=== PATIENT | male | born 1970 | race Caucasian/White ===

== ENCOUNTER 2017-03-15 12:41 | Emergency (ER) | payer OTHER, MEDICARE ==
[2017-03-15] MEDS ORDERED: ALBUTEROL SULFATE 0.083% NEB 2.5 MG/3 ML AMPUL NEB ONE (13:27)
[2017-03-15] MEDS ORDERED: PREDNISONE 20 MG TABLET PO ONE (13:27)
--- NOTE | 2017-03-15 13:30 | ER Document Report ---
ED General - General Chief Complaint: Diarrhea Stated Complaint: EAR PAIN,DIFFICULTY BREATHING Time Seen by Provider: 03/15/17 13:19 Mode of Arrival: Wheelchair Information source: Patient Notes: This is a 46-year-old male who presents with upper respiratory symptoms for the past week. He states that his cough has been improving however he still feels a tightness when he takes a deep breath. He has not run fevers in the past 3 days. He does state that his right ear has been hurting more the past 2 days. He was seen at the [facility] this morning for these symptoms and was told to come to the ER for further evaluation such as a chest x-ray. He is tolerating PO. TRAVEL OUTSIDE OF THE [place] IN LAST 30 DAYS: No - Related Data Allergies/Adverse Reactions: morphine [Morphine] Adverse Reaction (Verified 03/15/17 13:11) Past Medical History - General Information source: Patient - Social History Smoking Status: Unknown if Ever Smoked Family History: None Patient has suicidal ideation: No Patient has homicidal ideation: No Neurological Medical History: Reports: Hx Migraine Renal/ Medical History: Reports: Hx Kidney Stones. Denies: Hx Peritoneal Dialysis Musculoskeltal Medical History: Reports Hx Musculoskeletal Trauma - Immunizations Hx Diphtheria, Pertussis, Tetanus Vaccination: Yes Review of Systems - Review of Systems Constitutional: See HPI, Recent illness EENT: See HPI, Ear pain, Nose congestion. denies: Ear discharge Cardiovascular: No symptoms reported Respiratory: See HPI, Cough Gastrointestinal: No symptoms reported. denies: Abdominal pain, Nausea, Vomiting Genitourinary: No symptoms reported Musculoskeletal: No symptoms reported Skin: No symptoms reported Hematologic/Lymphatic: No symptoms reported Neurological/Psychological: No symptoms reported Physical Exam - Vital signs Vitals: Temp Pulse Resp BP Pulse Ox 98.3 F 103 H 20 159/101 H 96 03/15/17 12:47 03/15/17 12:47 03/15/17 12:47 03/15/17 12:47 03/15/17 12:47 - Notes Notes: PHYSICAL EXAMINATION: GENERAL: Well-appearing, obese adult male who is pleasant and conversant and in no acute distress. HEAD: Atraumatic, normocephalic. EYES: Pupils equal round and reactive to light, extraocular movements intact, sclera anicteric, conjunctiva are normal. ENT: nares patent, oropharynx with erythema,no exudates. Moist mucous membranes. R TM erythematous, L TM clear NECK: Normal range of motion, supple without lymphadenopathy LUNGS: Breath sounds clear to auscultation bilaterally and equal. No wheezes rales or rhonchi. HEART: Regular rate and rhythm without murmurs ABDOMEN: Obese, Soft, nontender, normoactive bowel sounds. EXTREMITIES: Normal range of motion NEUROLOGICAL: No gross focal motor or sensory deficits appreciated. PSYCH: Normal mood, normal affect. SKIN: Warm, Dry, normal turgor, no rashes or lesions noted. Course - Re-evaluation Re-evalutation: 03/15/17 15:10 Pt feeling better after breathing treatment here. BP 146/92. HR 88. - Vital Signs Vital signs: Temp Pulse Resp BP Pulse Ox 97.9 F 88 16 146/92 H 94 03/15/17 14:50 03/15/17 14:50 03/15/17 14:50 03/15/17 14:50 03/15/17 14:50 - Diagnostic Test Radiology reviewed: Reports reviewed - CXR: no acute process Discharge - Discharge Clinical Impression: Right otitis media Qualifiers: Otitis media type: unspecified Chronicity: unspecified Qualified Code(s): H66.91 - Otitis media, unspecified, right ear Condition: Stable Disposition: HOME, SELF-CARE Additional Instructions: OTITIS MEDIA: You have a middle ear infection (otitis media). This is usually a complication of a cold or sore throat. The middle ear cavity becomes filled with infection. Pressure and stretching of the ear drum cause pain. Antibiotics are required. A 10 day course is usually prescribed. A decongestant may be recommended if you have a "runny nose." You may need anesthetic drops or other pain medication. A follow-up exam may be recommended to make sure the infection has completely cleared. If the ear begins to drain, it means the ear drum has ruptured. This will usually heal spontaneously. However, it means you should keep the ear dry until re-examined by a doctor. Call the physician or return for examination at once if there is severe headache, stiff neck, confusion, increasing fever, or dizziness. You should improve significantly within two days. If you're not better, call the doctor. USE OF ACETAMINOPHEN (Tylenol): Acetaminophen may be taken for pain relief or fever control. It's much safer than aspirin, offering a wider range of "safe" dosages. It is safe during . Some brand names are Tylenol, Panadol, Datril, Anacin 3, Tempra, and Liquiprin. Acetaminophen can be repeated every four hours. The following are maximum recommended dosages: WEIGHT Dose Drops Elixir Chewable( 80mg) (LBS.) drprs=droppers tsp=teaspoon 6 40 mg 0.4 ml (1/2) 6-11 80 mg 0.8 ml (full) tsp 1 tab 12-16 120 mg 1 1/2 drprs 3/4 tsp 1 1/2 tabs 17-23 160 mg 2 drprs 1 tsp 2 tabs 24-30 240 mg 3 drprs 1 1/2 tsp 3 tabs 30-35 320 mg 2 tsp 4 tabs 36-41 360 mg 2 1/4 tsp 4 1/2 tabs 42-47 400 mg 2 1/2 tsp 5 tabs 48-53 480 mg 3 tsp 6 tabs 54-59 520 mg 3 1/4 tsp 6 1/2 tabs 60-64 560 mg 3 1/2 tsp 7 tabs 65-70 600 mg 3 3/4 tsp 7 1/2 tabs 71-76 640 mg 4 tsp 8 tabs 77-82 720 mg 4 1/2 tsp 9 tabs 83-88 800 mg 5 tsp 10 tabs >89 pounds or adults 650 mg to 900 mg Acetaminophen can be repeated every four hours. Maximum dose not to exceed 4000 mg a day. These maximum recommended dosages are slightly higher than the dosages written on the product container, but these dosages are very safe and below the toxic dosage for acetaminophen. FOLLOW-UP CARE: If you have been referred to a physician for follow-up care, call the physician s office for an appointment as you were instructed or within the next two days. If you experience worsening or a significant change in your symptoms, notify the physician immediately or return to the Emergency Department at any time for re-evaluation. Prescriptions: Amox Tr/Potassium Clavulanate [Augmentin 500-125 Tablet] 1 tab PO Q8 #30 tablet Prednisone 50 mg PO DAILY #4 tablet
--- NOTE | 2017-03-15 13:55 | RADIOLOGY REPORT (SQ) ---
EXAM DESCRIPTION: CHEST PA/LAT COMPLETED DATE/TIME: 03/15/2017 1:47 pm REASON FOR STUDY: cough, SOB COMPARISON: 01/28/2015 EXAM PARAMETERS: NUMBER OF VIEWS: two views TECHNIQUE: Digital Frontal and Lateral radiographic views of the chest acquired. RADIATION DOSE: NA LIMITATIONS: none FINDINGS: LUNGS AND PLEURA: No opacities, masses or pneumothorax. No pleural effusion. MEDIASTINUM AND HILAR STRUCTURES: No masses or contour abnormalities. HEART AND VASCULAR STRUCTURES: Heart normal size. No evidence for failure. BONES: No acute findings. HARDWARE: None in the chest. OTHER: No other significant finding. IMPRESSION: NO SIGNIFICANT RADIOGRAPHIC FINDING IN THE CHEST. TECHNICAL DOCUMENTATION: JOB ID: [id number] [employer]- All Rights Reserved
[2017-03-15 15:01] VITALS: BP 146/92
== END 2017-03-15 15:25 | disposition home or self-care (01) ==
LOC: ER 12:41
DX: H66.91 Otitis media, unspecified, right ear (principal); R19.7 Diarrhea, unspecified; R06.00 Dyspnea, unspecified; Z87.442 Personal history of urinary calculi; Z88.6 Allergy status to analgesic agent
CPT/HCPCS: 94640; 99284; 71020; J7512

== ENCOUNTER 2018-03-05 23:20 | Inpatient (IN) | payer OTHER, MEDICARE ==
--- NOTE | 2018-03-05 23:35 | EKG REPORT ---
SEVERITY:- OTHERWISE NORMAL ECG - SINUS TACHYCARDIA ATRIAL PREMATURE COMPLEX : Confirmed by: Yvonne De La Paz 05-Mar-2018 23:35:03
--- NOTE | 2018-03-06 00:08 | ER Document Report ---
ED General - General TRAVEL OUTSIDE OF THE [place].S[place] IN LAST 30 DAYS: No <JOSÉ EAST - Last Filed: 03/06/18 06:21> <DANYELL SILVA - Last Filed: 03/06/18 11:27> - General Chief Complaint: Chest Pain Stated Complaint: CHEST PAIN Time Seen by Provider: 03/06/18 00:06 Notes: Patient is a 47-year-old male who presents with complaint of severe upper quadrant pain. He says is been ongoing for about a month but has become much worse in the last week and then tonight became much worse. He was actually seen by his doctor the [facility] last week and had an ultrasound which showed he had a "inflamed gallbladder". He says he has a follow-up appointment with with a surgeon this coming Tuesday. Says the pain become much worse tonight is intractable and he said vomiting therefore is come to the ER. He does have diarrhea but says this is chronic from irritable bowel syndrome. He is on chronic pain medicine and took several Vicodin today which did not help his pain. No blood in the stool. No blood in his emesis. No other complaints this time. Says the pain does radiate up into his lower chest. He denies any history of coronary disease. Denies any recent stress testing or heart cath. ( JOSÉ EAST) - Related Data Allergies/Adverse Reactions: morphine [Morphine] Adverse Reaction (Verified 03/06/18 00:39) rash Past Medical History - Social History Smoking Status: Unknown if Ever Smoked Frequency of alcohol use: None Drug Abuse: None Family History: None Neurological Medical History: Reports: Hx Migraine Renal/ Medical History: Reports: Hx Kidney Stones. Denies: Hx Peritoneal Dialysis Musculoskeltal Medical History: Reports Hx Musculoskeletal Trauma - Immunizations Hx Diphtheria, Pertussis, Tetanus Vaccination: Yes <JOSÉ EAST - Last Filed: 03/06/18 06:21> Review of Systems <JOSÉ EAST - Last Filed: 03/06/18 06:21> <DANYELL SILVA - Last Filed: 03/06/18 11:27> - Review of Systems Notes: My Normal Review Basic REVIEW OF SYSTEMS: CONSTITUTIONAL : Denies fever, chills, or sweats. Denies recent illness. EENT: Denies eye, ear, throat, or mouth pain or symptoms. Denies nasal or sinus congestion. CARDIOVASCULAR: Right lower chest pain RESPIRATORY: Denies cough, cold, or chest congestion. Denies shortness of breath, difficulty breathing, or wheezing. GASTROINTESTINAL: Right upper quadrant abdominal pain. Vomiting GENITOURINARY: Denies difficulty urinating, painful urination, burning, frequency, or blood in urine. MUSCULOSKELETAL: Denies neck or back pain or joint pain or swelling. SKIN: Denies rash or skin lesions. NEUROLOGICAL: Denies altered mental status or loss of consciousness. Denies headache. Denies weakness or paralysis or loss of use of either side. Denies problems with gait or speech. Denies sensory or motor loss. ALL OTHER SYSTEMS REVIEWED AND NEGATIVE. (JOSÉ EAST) Physical Exam <JOSÉ EAST - Last Filed: 03/06/18 06:21> <DANYELL SILVA - Last Filed: 03/06/18 11:27> - Vital signs Vitals: Temp Pulse Resp BP Pulse Ox 98.9 F 110 H 22 H 148/121 H 95 03/05/18 23:36 03/05/18 23:36 03/05/18 23:36 03/05/18 23:36 03/05/18 23:36 - Notes Notes: General Appearance: Well nourished, alert, cooperative, no acute distress, moderate to severe obvious discomfort. Vitals: reviewed, See vital signs table. Head: no swelling or tenderness to the head Eyes: PERRL, EOMI, Conjuctiva clear Mouth: No decreasd moisture Lungs: No wheezing, No rales, No rhonci, No accessory muscle use, good air exchange bilaterally. Heart: Normal rate, Regular rythm, No murmur, no rub Abdomen: Normal BS, soft, No rigidity, Right upper quadrant abdominal tenderness to palpation., No guarding, no rebound, no abdominal masses, no organomegaly Extremities: strength 5/5 in all extremities, good pulses in all extremities, no swelling or tenderness in the extremities, no edema. Skin: warm, dry, appropriate color, no rash Neuro: speech clear, oriented x 3, normal affect, responds appropriately to questions. (JOSÉ EAST) Course - Laboratory Result Diagrams: 03/06/18 00:31 03/06/18 00:31 <JOSÉ EAST - Last Filed: 03/06/18 06:21> - Laboratory Result Diagrams: 03/06/18 00:31 03/06/18 00:31 <DANYELL SILVA - Last Filed: 03/06/18 11:27> - Re-evaluation Re-evalutation: 03/06/18 04:07 Patient's workup for his gallbladder is negative although his symptoms and findings are very consistent with that of gallbladder dysfunction. He may have biliary dyskinesia. I did call and speak with Dr. Weaver patient is very much interested in getting his gallbladder removed because of his ongoing pain. Dr. green agrees a HIDA scan would be the most appropriate next course of action. I have ordered a HIDA scan for the morning. I did inform the patient that if the HIDA scans negative symptoms are improved at most likely he will go home to follow-up with his surgeon on Tuesday; however, the HIDA scan is positive then most likely he will have surgery. Patient is understanding of this. (JOSÉ EAST) 03/06/18 09:53 Patient has skin shows biliary dyskinesia patient is still having pain pain was exacerbated with injection of CCK. Notified surgeon consulting services project manager will go ahead and get the patient a dose of antibiotics will remain n.p.o. maintenance fluids ordered. Patient still having right upper quadrant pain on examination will give the patient a dose of pain medication. (DANYELL SILVA) - Vital Signs Vital signs: Temp Pulse Resp BP Pulse Ox 98.9 F 113 H 17 130/89 H 97 03/05/18 23:36 03/06/18 00:13 03/06/18 09:06 03/06/18 09:06 03/06/18 09:06 - Laboratory Laboratory results interpreted by me: 03/06/18 00:31 Carbon Dioxide 21 L BUN 21 H - EKG Interpretation by Me Additional EKG results interpreted by me: 03/06/18 00:07 EKG is reviewed and interpreted by me. EKG shows sinus tachycardia with rate of [address] segment elevation or depression. No ischemic T-wave inversions. UT interval, QRS duration, QTc intervals are within normal range. Old EKG for comparison is from January 28, 2015. (JOSÉ EAST) Discharge <JOSÉ EAST - Last Filed: 03/06/18 06:21> - Discharge Admitting Provider: Surgicalist Unit Admitted: OR <DANYELL SILVA - Last Filed: 03/06/18 11:27> - Discharge Clinical Impression: Biliary dyskinesia Abdominal pain Qualifiers: Abdominal location: right upper quadrant Qualified Code(s): R10.11 - Right upper quadrant pain Condition: Good Disposition: ADMITTED OBSERVATION Instructions: Oral Narcotic Medication ([facility]) Additional Instructions: I suspect your pain is related to your gallbladder being that your pain is over the right upper portion of your abdomen and you have associated vomiting. Please follow up closely with the surgeon on Tuesday as scheduled. Please return to the ER immediately if you develop fevers, worsening pain, or intractable vomiting. Prescriptions: Ondansetron [Zofran Odt 4 mg Tablet] 1 tab PO Q4H PRN #15 tab.rapdis PRN Reason: For Nausea/Vomiting
[2018-03-06] MEDS ORDERED: NORMAL SALINE 1000 ML 1,000 ML IV ONE ×2 (00:13→09:49)
[2018-03-06] MEDS ORDERED: HYDROMORPHONE HCL INJ/PF 2 MG/ML AMPULE IV ONE ×4 (00:13→09:30)
[2018-03-06] MEDS ORDERED: ONDANSETRON HCL INJ/PF 4 MG/2 ML SDV IV ONE ×3 (00:13→09:38)
[2018-03-06 00:45] LABS: ABSOLUTE BASOPHILS # (AUTO) 0.1 10^3/uL (0.0-0.2); ABSOLUTE EOSINOPHILS # (AUTO) 0.2 10^3/uL (0.0-0.6); ABSOLUTE LYMPHOCYTES (AUTO) 3.7 10^3/uL (0.5-4.7); BASOPHILS % (AUTO) 0.8 % (0-2); EOSINOPHILS % (AUTO) 1.8 % (0-6); HEMATOCRIT 43.9 % (37.9-51.0); LYMPHOCYTES % (AUTO) 37.5 % (13-45); MEAN CORPUSCULAR HEMOGLOBIN 30.7 pg (27.0-33.4); MEAN CORPUSCULAR HGB CONC 34.2 g/dL (32.0-36.0); MEAN CORPUSCULAR VOLUME 90 fl (80-97); MONOCYTES % (AUTO) 9.7 % (3-13); PLATELET COUNT 331 10^3/uL (150-450); RED CELL DISTRIBUTION WIDTH 13.3 % (11.5-14.0); SEGMENTED NEUTROPHILS % (AUTO) 50.2 % (42-78); TOTAL CELLS COUNTED % (AUTO) 100 %; WHITE BLOOD COUNT 9.9 10^3/uL (4.0-10.5)
[2018-03-06 01:05] LABS: ALANINE AMINOTRANSFERASE 53 U/L (21-72); ALBUMIN 4.7 g/dL (3.5-5.0); ALKALINE PHOSPHATASE 77 U/L (38-126); ANION GAP 17 (5-19); ASPARTATE AMINO TRANSFERASE 29 U/L (17-59); BILIRUBIN,DIRECT 0.3 mg/dL (0.0-0.4); BILIRUBIN,TOTAL 0.7 mg/dL (0.2-1.3); BLOOD UREA NITROGEN 21 mg/dL (7-20); CALCIUM 9.8 mg/dL (8.4-10.2); CARBON DIOXIDE 21 mmol/L (22-30); CHLORIDE 105 mmol/L (98-107); GLUCOSE 95 mg/dL (75-110); LIPASE 34.6 U/L (23-300); POTASSIUM 4.4 mmol/L (3.6-5.0); SODIUM 142.5 mmol/L (137-145); TOTAL PROTEIN 7.3 g/dL (6.3-8.2)
--- NOTE | 2018-03-06 03:10 | RADIOLOGY REPORT (SQ) ---
EXAM DESCRIPTION: CLINICAL HISTORY: RUQ abdominal pain COMPARISON: None. TECHNIQUE: Real-time sonographic images of the right upper abdomen were obtained using a curved multihertz transducer. Large patient body habitus. FINDINGS: Pancreas: The visualized portions of the pancreas are unremarkable. Vascular: The visualized portions of the aorta and IVC are unremarkable. Liver: The liver has normal contour and increased echogenicity. The common bile duct is not visualized Gallbladder: The gallbladder has a normal appearance. No gallstones identified. No wall thickening or pericholecystic fluid. Positive reported sonographic Neves sign. Right Kidney: The right kidney measures 10.1 cm in length. No hydronephrosis, solid renal mass, or shadowing calculi. IMPRESSION: 1. Hepatic steatosis. 2. No gallstones identified.
--- NOTE | 2018-03-06 03:47 | RADIOLOGY REPORT (SQ) ---
EXAM DESCRIPTION: CT ABDOMEN AND PELVIS WITH CONTRAST CLINICAL HISTORY: RUQ abdominal pain COMPARISON: None Available. TECHNIQUE: CT of the abdomen and pelvis performed following IV administration of 100 mL of Isovue-370. DLP: 3269 mGycm FINDINGS: Lung Bases: The visualized lung bases are clear. Bones: No destructive bone lesions identified. Degenerative change of the spine. Dorsal generator leads. Abdomen: Liver: The liver has normal size and decreased density. No intrahepatic mass or biliary dilatation. Gallbladder: No calcified gallstones. Spleen, Pancreas, and Adrenal Glands: The spleen, pancreas, and adrenal glands are unremarkable. Kidneys: The kidneys have normal size and contour without evidence of solid mass or hydronephrosis. Vasculature: Aortoiliac atherosclerosis. IVC is unremarkable. The portal vein is patent. The proximal visceral and renal arteries are patent. Stomach: Small hiatal hernia. Other: No free intraperitoneal air. No free fluid or lymphadenopathy. Pelvis: Bladder: Urinary bladder is unremarkable. Bowel: No dilated loops of large or small bowel. Appendix: Normal appendix. Pelvis: Prostate is not enlarged. IMPRESSION: 1. No acute inflammatory or obstructive process identified. 2. Hepatic steatosis. This exam was performed according to our departmental dose-optimization program, which includes automated exposure control, adjustment of the mA and/or kV according to patient size and/or use of iterative reconstruction technique.
[2018-03-06] MEDS ORDERED: SUCCINYLCHOLINE CHLORIDE INJ 200 MG/10 ML VIAL ONE (08:02)
[2018-03-06] MEDS ORDERED: GLYCOPYRROLATE 1 MG/5 ML SYRINGE ONE (08:02)
[2018-03-06] MEDS ORDERED: VECURONIUM BROMIDE INJ 10 MG VIAL IV ONE (08:02)
[2018-03-06] MEDS ORDERED: NEOSTIGMINE METHYLSULFATE 10 MG/10 ML VIAL ONE (08:02)
--- NOTE | 2018-03-06 09:22 | RADIOLOGY REPORT (SQ) ---
EXAM DESCRIPTION: NM HIDA SCAN WITH CCK COMPLETED DATE/TIME: 03/06/2018 9:11 am REASON FOR STUDY: RUQ abdominal pain (w/CCK PER DR. SILVA) COMPARISON: None. RADIONUCLIDE AND DOSE: DOSAGE RADIONUCLIDE: 5.4 millicuries Tc99m Mebrofenin. DOSAGE CCK: 2.5 micrograms. DOSAGE MORPHINE: Not required. The route of agent administration: Intravenous TECHNIQUE: Serial imaging right upper quadrant up to 60 minutes following injection of radionuclide. CCK injected after gallbladder visualized. LIMITATIONS: None. FINDINGS: LIVER: Normal visualization without areas of photopenia. INTRA AND EXTRAHEPATIC BILE DUCTS: Normal accumulation of activity. GALLBLADDER: Normal visualization. Calculated Ejection Fraction of 8%. Below the normal value of 35% or greater. PHYSICAL RESPONSE: Patients presenting complaint was reproduced. OTHER: No other significant finding. IMPRESSION: LOW GALLBLADDER EJECTION FRACTION. EVIDENCE FOR BILIARY DYSKINESIS. NO CYSTIC OR COMMO N DUCT OBSTRUCTION. TECHNICAL DOCUMENTATION: JOB ID: [id number] [employer]- All Rights Reserved Reading location - IP/workstation name: [email or web address]
[2018-03-06] MEDS ORDERED: ERTAPENEM SODIUM INJ 1 GM VIAL IV ONE (09:49)
--- NOTE | 2018-03-06 10:49 | PDOC H&P ---
History of Present Illness Patient complains of: Right upper quadrant pain History of Present Illness: NADYA CULVER is a 47 year old male Is seen in the emergency department via ground rescue complaining of abdominal pain, nausea, green bilious emesis. Patient has had similar symptoms for the past month. He was evaluated at the [place], had a gallbladder ultrasound which showed inflamed gallbladder. He was to follow-up with a surgeon but due to symptoms came into the emergency department last night. He was worked up and found to have evidence of impaired ejection fraction on HIDA scan. CT scan of the abdomen and pelvis, and gallbladder ultrasonography reportedly normal. EKG showed sinus tachycardia. Surgery was consulted and he was advised admission for definitive management. Past Medical History Past Medical History: Chronic back pain, nerve stimulator, osteoarthritis Neurological Medical History: Reports: Migraine Past Surgical History Past Surgical History: Reports: Orthopedic Surgery - back,knee, Other - Nerve stimulator; bilateral knee surgery; colonoscopy with polypectomies Social History Information Source: Patient Smoking Status: Never Smoker Frequency of Alcohol Use: None Hx Recreational Drug Use: No Hx Prescription Drug Abuse: No Family History Family History: None Parental Family History Reviewed: Yes Children Family History Reviewed: Yes Sibling(s) Family History Reviewed.: Yes Medication/Allergy Home Medications: Amitriptyline HCl [Elavil 25 mg Tablet] 25 mg PO QHS #14 tablet 03/14/14 Ibuprofen [Motrin 600 Mg Tablet] 600 mg PO TID #15 tablet 03/14/14 Oxycodone HCl/Acetaminophen [Percocet 5-325 mg Tablet] 1 - 2 tab PO Q4H PRN #25 tablet 03/14/14 Tramadol HCl 50 mg PO 5XD #25 tablet 03/14/14 Prednisone 60 mg PO WBRKFST #12 tablet 03/15/14 Azithromycin [Zithromax] 250 mg PO DAILY #5 tablet 01/28/15 Benzonatate [Tessalon Perle 100 mg Capsule] 100 mg PO Q8HP PRN #40 cap 01/28/15 Amox Tr/Potassium Clavulanate [Augmentin 500-125 Tablet] 1 tab PO Q8 #30 tablet 03/15/17 Prednisone 50 mg PO DAILY #4 tablet 03/15/17 Ondansetron [Zofran Odt 4 mg Tablet] 1 tab PO Q4H PRN #15 tab.rapdis 03/06/18 Allergies/Adverse Reactions: morphine [Morphine] Adverse Reaction (Verified 03/06/18 00:39) rash Review of Systems Constitutional: PRESENT: as per HPI Eyes: ABSENT: visual disturbances Ears: ABSENT: hearing changes Gastrointestinal: PRESENT: as per HPI Genitourinary: ABSENT: dysuria, hematuria Integumentary: ABSENT: rash, wounds Neurological: PRESENT: paresthesias Physical Exam Vital Signs: Temp Pulse Resp BP Pulse Ox 98.9 F 113 H 17 130/89 H 97 03/05/18 23:36 03/06/18 00:13 03/06/18 09:06 03/06/18 09:06 03/06/18 09:06 Intake & Output 03/05/18 03/06/18 03/07/18 06:59 06:59 06:59 Weight 162 kg General appearance: PRESENT: no acute distress Head exam: PRESENT: normocephalic Eye exam: PRESENT: EOMI Ear exam: PRESENT: normal external ear exam Neck exam: PRESENT: full ROM Respiratory exam: PRESENT: clear to auscultation soniya Cardiovascular exam: PRESENT: RRR Pulses: PRESENT: normal carotid pulses, normal radial pulses, normal femoral pulses GI/Abdominal exam: PRESENT: other - Abdomen is slightly distended; right upper quadrant tender to mild palpation. No rigidity. No umbilical hernia; no groin hernias Rectal exam: PRESENT: deferred Extremities exam: PRESENT: full ROM Musculoskeletal exam: PRESENT: full ROM Psychiatric exam: PRESENT: appropriate affect Results Laboratory Results: 03/06/18 00:31 03/06/18 00:31 03/06/18 03/06/18 00:31 00:31 WBC 9.9 RBC 4.90 Hgb 15.0 Hct 43.9 MCV 90 MCH 30.7 MCHC 34.2 RDW 13.3 Plt Count 331 Seg Neutrophils % 50.2 Lymphocytes % 37.5 Monocytes % 9.7 Eosinophils % 1.8 Basophils % 0.8 Absolute Neutrophils 5.0 Absolute Lymphocytes 3.7 Absolute Monocytes 1.0 Absolute Eosinophils 0.2 Absolute Basophils 0.1 Sodium 142.5 Potassium 4.4 Chloride 105 Carbon Dioxide 21 L Anion Gap 17 BUN 21 H Creatinine 0.96 Est GFR ( Amer) > 60 Est GFR (Non-Af Amer) > 60 Glucose 95 Calcium 9.8 Total Bilirubin 0.7 AST 29 ALT 53 Alkaline Phosphatase 77 Total Protein 7.3 Albumin 4.7 Lipase 34.6 03/06/18 00:31 Troponin I < 0.012 Impressions: Abdomen Ultrasound 03/06/18 00:12 IMPRESSION: 1. Hepatic steatosis. 2. No gallstones identified. Abdomen/Pelvis CT 03/06/18 02:58 IMPRESSION: 1. No acute inflammatory or obstructive process identified. 2. Hepatic steatosis. This exam was performed according to our departmental dose-optimization program, which includes automated exposure control, adjustment of the mA and/or kV according to patient size and/or use of iterative reconstruction technique. Hepatobiliary Scan Nuclear Medicine 03/06/18 04:02 IMPRESSION: LOW GALLBLADDER EJECTION FRACTION. EVIDENCE FOR BILIARY DYSKINESIS. NO CYSTIC OR COMMON DUCT OBSTRUCTION. Assessment & Plan - Diagnosis (1) Cholecystitis Is this a current diagnosis for this admission?: Yes Plan: Patient presents with acute superimposed on chronic cholecystitis based on clinical history, and impaired ejection fraction on the scanning; gallbladder ultrasonography and CT scan reportedly unremarkable. Liver function studies within normal limits. Recommendations: 1. I have recommended patient be admitted, kept n.p.o. on IV fluids intravenous antibiotics and set up for interval laparoscopic, possible open cholecystectomy. I have reviewed the risks benefits alternatives of planned procedure as well as the mechanics of the operation, and likely length of stay. Patient expresses understanding agrees to proceed. (2) Obesity Qualifiers: Obesity type: due to excess calories Body mass index: BMI 40.0-44.9 Is this a current diagnosis for this admission?: Yes (3) Chronic back pain Is this a current diagnosis for this admission?: Yes (4) Spinal cord stimulator status Is this a current diagnosis for this admission?: Yes - Time Time Spent: 30 to 50 Minutes Critical Time spent with patient: Less than 15 minutes Medications reviewed and adjusted accordingly: Yes Anticipated discharge: Home - Inpatient Certification Based on my medical assessment, after consideration of the patient's comorbidities, presenting symptoms, or acuity I expect that the services needed warrant INPATIENT care.: Yes I certify that my determination is in accordance with my understanding of Medicare's requirements for reasonable and necessary INPATIENT services [42 CFR 412.3e].: Yes Medical Necessity: Need For IV Fluids, Need for Pain Control, Need for IV Antibiotics, Need for Surgery
[2018-03-06] MEDS ORDERED: ONDANSETRON HCL INJ/PF 4 MG/2 ML SDV IV PRN ×2 (10:52→15:22)
[2018-03-06] MEDS ORDERED: KETOROLAC TROMETHAMINE INJ/PF 30 MG/1 ML SDV IV PRN ×2 (10:52→15:22)
[2018-03-06] MEDS ORDERED: RINGERS SOLUTION,LACTATED 1,000 ML IV PRN (10:54)
[2018-03-06] MEDS ORDERED: ACETAMINOPHEN INJ/PF 1000 MG/100 ML SDV IV SCH (12:00)
[2018-03-06] MEDS ORDERED: LIDOCAINE 2% INJ-PF (20 MG/ML) 10 ML AMPUL ONE (13:56)
[2018-03-06] MEDS ORDERED: FENTANYL CITRATE INJ/PF 100 MCG/2 ML AMPUL ONE ×2 (13:56→13:58)
[2018-03-06] MEDS ORDERED: MIDAZOLAM 2 MG/2 ML INJ ONE (13:57)
[2018-03-06] MEDS ORDERED: DEXAMETHASONE SOD PHOSPHATE INJ 4 MG/1 ML VIAL ONE (13:57)
[2018-03-06] MEDS ORDERED: ACETAMINOPHEN 1,000 MG/100 ML RTUPB IV ONE (13:58)
[2018-03-06] MEDS ORDERED: ONDANSETRON HCL INJ/PF 4 MG/2 ML SDV ONE (13:58)
[2018-03-06] MEDS ORDERED: BUPIVACAINE HCL 0.25 % INJ/PF (2.5 MG/1 ML) 30 ML VIAL ONE (14:37)
[2018-03-06] MEDS ORDERED: MORPHINE SULFATE 10 MG/ML INJ IV PRN (14:42)
[2018-03-06] MEDS ORDERED: FENTANYL CITRATE INJ/PF 100 MCG/2 ML AMPUL IV PRN ×3 (14:42)
[2018-03-06] MEDS ORDERED: MEPERIDINE HCL/PF INJ 25 MG/1 ML DISP.SYRIN IV PRN (14:42)
[2018-03-06] MEDS ORDERED: PROMETHAZINE HCL INJ 25 MG/1 ML VIAL IV PRN ×2 (14:42)
[2018-03-06] MEDS ORDERED: DIPHENHYDRAMINE HCL 50 MG/ML VIAL IV PRN (14:42)
[2018-03-06] MEDS ORDERED: ACETAMINOPHEN 1,000 MG/100 ML RTUPB IV SCH (15:00)
--- NOTE | 2018-03-06 15:27 | Operative Report ---
Operative Report DATE OF SURGERY: 03/06/18 PREOPERATIVE DIAGNOSIS: 1. Acute cholecystitis POSTOPERATIVE DIAGNOSIS: Same with intra-abdominal adhesions OPERATION: 1. Laparoscopic cholecystectomy. 2. Intraoperative lysis of adhesions SURGEON: NAOMIE MORRIS ANESTHESIA: GA TISSUE REMOVED OR ALTERED: 1 gallbladder with contents COMPLICATIONS: None ESTIMATED BLOOD LOSS: Minimal INTRAOPERATIVE FINDINGS: See below PROCEDURE: After obtaining informed consent, the patient was taken to the operating room. General Anesthesia was induced; the arms were extended, and the abdomen was exposed, and prepped and draped in a sterile fashion. Instrumentation was set up for laparoscopic cholecystectomy. Surgical plan and surgical timeout were conducted. A vertical incision was made above the umbilicus, and a verres needle was inserted uneventfully into the peritoneal cavity. Pneumoperitoneum was established. The verres needle was removed and a 5 mm trocar was inserted and a 5 mm flexible laparoscope was inserted. Visualization of the peritoneal cavity confirmed safe uneventful entry. Under direct visualization 3 additional 5 mm ports were established, one in the subxiphoid position and second in the subcostal position. Of note there were adhesions between the greater omentum edge and the anterior abdominal wall between the falciform ligament and the supraumbilical port site. Visualization of the hepatobiliary anatomy revealed no anatomic variations. There were adhesions between the gallbladder and the gastroduodenal area, and these were taken down with hook cautery dissection under direct, excellent visualization. A grasper was placed on the fundus of the gallbladder and the gallbladder is elevated over the right surface of the liver; a second grasper was used to grasp the infundibulum of the gallbladder. The neck of the gallbladder and junction with the cystic duct was dissected out. The Cystic artery was in its usual location medial and cephalad to the cystic duct. Photos were taken . the cystic artery was surrounded with a right angle clamp, clipped twice proximally and divided with laparoscopic scissors. We now opened the triangle of Calot by dividing the peritoneal reflection on both the medial and lateral sides of the cystic duct infundibular junction. The critical view was obtained. Multiple photographs were taken ; we now milked the cystic duct of any possible stones, clipped the cystic duct approximately 2 times ,once distally and divided the duct with scissors. The gallbladder was now removed from the undersurface of the liver using hook cautery dissection. Graspers were repositioned and the gallbladder was removed uneventfully from the abdominal cavity through the super umbilical port site incision. The specimen was examined, then passed off to pathology for permanent analysis. We returned to the peritoneal cavity check for bleeding, and evidence of bile leak, and there was none. We Did use electrocautery to take down adhesions between the right omentum and the anterior abdominal wall all under direct visualization. There was no proximity of the heat to the small or large intestines; we Confirmed satisfactory placement of clips on cystic duct and cystic artery were secured . At this point we felt the operation was complete. Photos were taken. The subcutaneous tissue was then anesthetized with quarter percent Marcaine Sponge and needle counts are correct. All ports removed under direct visualization pneumoperitoneum evacuated, and 5 mm port wounds closed with 3-0 Vicryl suture, benzoin and Steri-Strips. The patient was extubated, and taken to the recovery room in stable condition.
[2018-03-06] MEDS ORDERED: PROMETHAZINE HCL INJ 25 MG/1 ML VIAL ONE ×2 (15:34→16:16)
[2018-03-06] MEDS ORDERED: DOCUSATE SODIUM 100 MG CAPSULE PO SCH (18:00)
[2018-03-06] MEDS: AMPICILLIN SODIUM/SULBACTAM NA 3 GM in NORMAL SALINE 100 ML IV SCH ×2 (19:03→21:50)
[2018-03-06] MEDS: ACETAMINOPHEN 1,000 MG/100 ML RTUPB IV SCH (23:57)
[2018-03-07] MEDS: AMPICILLIN SODIUM/SULBACTAM NA 3 GM in NORMAL SALINE 100 ML IV SCH (05:58)
[2018-03-07] MEDS: ACETAMINOPHEN 1,000 MG/100 ML RTUPB IV SCH (06:05)
[2018-03-07 12:45] VITALS: BP 121/76
--- NOTE | 2018-03-07 13:04 | DISCHARGE SUMMARY E ---
Discharge Summary NAME: NADYA CULVER : 1970 AGE: 47Y ADMITTED: 03/06/2018 DISCHARGED: 03/07/2018 FINAL DIAGNOSIS: Acute calculus cholecystitis. PROCEDURE DONE: Laparoscopic cholecystectomy on 03/06/2018, surgeon Dr. Cummings. SUMMARY: This 47-year-old male was admitted for acute calculus cholecystitis. He then underwent laparoscopic cholecystectomy on 03/06/2018 which he tolerated well. Today, 03/07/2018, he is tolerating a regular diet and in much less pain. He refused to take any prescriptions for pain medicine and he said he will be fine with just some Tylenol p.r.n. if needed. His incisions looked good; they are clean and dry. He will be discharged today to be followed up in the surgical clinic in 1 to [address] Cummings. He was advised not to do any lifting more than 10 to 15 pounds over the next 1 to 2 weeks. DICTATING PHYSICIAN: JANUSZ SENA M.D. [id number] PHY#: [id number] ID: [id number] JOB#: [id number] ACCT: [id number] cc:Tammie JAQUEZ MD, M.D. [facility],
== END 2018-03-07 13:00 | disposition home or self-care (01) | DRG 418 ==
LOC: ER 23:20 → EH 03-06 11:30 → 4N 03-06 12:33
PROVIDERS: ADMIT Surgery; ATTEND Surgery
PROC: 0FT44ZZ Resection of Gallbladder, Percutaneous Endoscopic Approach (ICD-10-PCS; principal; 2018-03-06 14:15)
DX: K81.2 Acute cholecystitis with chronic cholecystitis (principal); Z68.41 Body mass index [BMI] 40.0-44.9, adult; R00.0 Tachycardia, unspecified; G89.29 Other chronic pain; M54.9 Dorsalgia, unspecified; M19.90 Unspecified osteoarthritis, unspecified site; G43.909 Migraine, unspecified, not intractable, without status migrainosus; E66.09 Other obesity due to excess calories; Z86.010 Personal history of colon polyps; Z79.899 Other long term (current) drug therapy; Z88.6 Allergy status to analgesic agent; Z79.52 Long term (current) use of systemic steroids
CPT/HCPCS: 36415; 74177; 76705; 78227; 790; 80053; 83690; 84484; 85025; 88304; 93005; 93010; 93976; 94762; 96361; 96365; 96375; 96376; 99285; A9537; J0131; J0295; J0330; J1100; J1170; J1335; J2250; J2405; J2550; J2805; J3010; J3490; J7030; J7120; Q9969

== ENCOUNTER 2020-04-25 20:37 | Inpatient (IN) | payer OTHER, MEDICARE ==
[2020-04-25] MEDS ORDERED: NORMAL SALINE 1000 ML 1,000 ML IV ONE (21:28)
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
[2020-04-25] MEDS ORDERED: HYDROMORPHONE HCL INJ/PF 2 MG/ML AMPULE IV ONE (21:45)
[2020-04-25] MEDS ORDERED: ONDANSETRON HCL INJ/PF 4 MG/2 ML SDV IV ONE (21:45)
[2020-04-25] MEDS ORDERED: PIPERACILLIN/TAZOBACTAM 3.375 GM VIAL IV ONE (21:45)
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
[2020-04-25 21:55] LABS: ABSOLUTE BASOPHILS # (AUTO) 0.1 10^3/uL (0.0-0.2); ABSOLUTE EOSINOPHILS # (AUTO) 0.1 10^3/uL (0.0-0.6); ABSOLUTE LYMPHOCYTES (AUTO) 1.3 10^3/uL (0.5-4.7); ABSOLUTE MONOCYTES (AUTO) 0.9 10^3/uL (0.1-1.4); ABSOLUTE NEUT (AUTO) 7.3 10^3/uL (1.7-8.2); BASOPHILS % (AUTO) 0.8 % (0-2); EOSINOPHILS % (AUTO) 1.4 % (0-6); HEMATOCRIT 37.7 % (37.9-51.0); HEMOGLOBIN 12.2 g/dL (13.5-17.0); LYMPHOCYTES % (AUTO) 13.9 % (13-45); MEAN CORPUSCULAR HEMOGLOBIN 29.2 pg (27.0-33.4); MEAN CORPUSCULAR HGB CONC 32.4 g/dL (32.0-36.0); MEAN CORPUSCULAR VOLUME 90 fl (80-97); MONOCYTES % (AUTO) 8.8 % (3-13); PLATELET COUNT 473 10^3/uL (150-450); RED BLOOD COUNT 4.18 10^6/uL (4.35-5.55); RED CELL DISTRIBUTION WIDTH 15.9 % (11.5-14.0); SEGMENTED NEUTROPHILS % (AUTO) 75.1 % (42-78); TOTAL CELLS COUNTED % (AUTO) 100 %; WHITE BLOOD COUNT 9.7 10^3/uL (4.0-10.5)
[2020-04-25 22:12] LABS: ALBUMIN 3.6 g/dL (3.5-5.0); ALKALINE PHOSPHATASE 150 U/L (38-126); ANION GAP 9 (5-19); ASPARTATE AMINO TRANSFERASE 24 U/L (17-59); BILIRUBIN,DIRECT 0.2 mg/dL (0.0-0.4); BILIRUBIN,TOTAL 0.6 mg/dL (0.2-1.3); BLOOD UREA NITROGEN 4 mg/dL (7-20); CARBON DIOXIDE 26 mmol/L (22-30); CHLORIDE 103 mmol/L (98-107); GLUCOSE 132 mg/dL (75-110); POTASSIUM 3.8 mmol/L (3.6-5.0); TOTAL PROTEIN 6.6 g/dL (6.3-8.2)
[2020-04-25 22:34] LABS: ERYTHROCYTE SEDIMENTATION RATE 96 mm/hr (0-20)
--- NOTE | 2020-04-25 23:27 | RADIOLOGY REPORT (SQ) ---
EXAM DESCRIPTION: CT LOWER EXTREMITY WITH IV CONTRAST COMPLETED DATE/TME: 04/25/2020 21:46 CLINICAL HISTORY: 50 years, Male, left hip/thigh swelling/erythema/pain COMPARISON: None. TECHNIQUE: 256 Images stored on PACS. All CT scanners at this facility use dose modulation, iterative reconstruction, and/or weight based dosing when appropriate to reduce radiation dose to as low as reasonably achievable (ALARA). [facility]: Dose Right [facility]: CareDose [facility]: Dose Right [facility]: Teradose 4D [facility]: [employer] LIMITATIONS: None. FINDINGS: Limited evaluation of intrapelvic structures is unremarkable. Post surgical change of the right hip. Stimulating device projects over the left gluteal region. There is associated artifact. There is an area of heterotopic bone/calcification along the anterior margin of the left iliac crest which could reflect sequelae of old trauma. Negative for acute osseous abnormality. There is skin thickening with underlying subcutaneous fat stranding and inflammation in the left hip region. There is a 13.5 x 5.5 x 12.6 cm fluid collection in the subcutaneous fat, anterior to the underlying musculature. There is no internal gas within this collection. This has a slightly thick-walled appearance. IMPRESSION: Nonspecific superficial fluid collection anterior to the left hip musculature, as above. There is some adjacent subcutaneous fat stranding/inflammation and skin thickening. This could reflect hematoma with degrading blood products. Abscess could have a similar appearance. TECHNICAL DOCUMENTATION: Quality ID # [id number]: Final reports with documentation of one or more dose reduction techniques (e.g., Automated exposure control, adjustment of the mA and/or kV according to patient size, use of iterative reconstruction technique) copyright 2011 [employer]- All Rights Reserved
[2020-04-26] MEDS ORDERED: HYDROMORPHONE HCL INJ/PF 2 MG/ML AMPULE IV ONE (00:23)
[2020-04-26] MEDS ORDERED: MAGNESIUM HYDROXIDE SUSP 30 ML UDCUP PO PRN (02:32)
[2020-04-26] MEDS ORDERED: PROMETHAZINE HCL INJ 25 MG/1 ML VIAL IV PRN ×2 (02:32→13:42)
[2020-04-26] MEDS ORDERED: ACETAMINOPHEN 650 MG SUPP.RECT PR PRN (02:32)
[2020-04-26] MEDS ORDERED: DEXTROSE 40% GEL 15 GM TUBE PO PRN ×2 (02:32)
[2020-04-26] MEDS ORDERED: MAG HYDROX/AL HYDROX/SIMETH SUSP 30 ML UDCUP PO PRN (02:32)
[2020-04-26] MEDS ORDERED: GLUCAGON,HUMAN RECOMB 1 MG INJ SUBCUT PRN (02:32)
[2020-04-26] MEDS ORDERED: DEXTROSE 50%-WATER 25 GM/50 ML DISP.SYRIN IV PRN ×2 (02:32)
[2020-04-26] MEDS ORDERED: HYDROMORPHONE HCL INJ/PF 2 MG/ML AMPULE IV PRN ×4 (02:38→02:56)
[2020-04-26] MEDS ORDERED: LORAZEPAM INJ 2 MG/1 ML VIAL IV PRN (02:38)
[2020-04-26] MEDS ORDERED: HYDRALAZINE HCL INJ/PF 20 MG/1 ML SDV IV PRN (02:38)
[2020-04-26] MEDS ORDERED: GUAIFENESIN SYRP 200 MG/10 ML UDC PO PRN (02:38)
[2020-04-26] MEDS ORDERED: PIPERACILLIN/TAZOBACTAM 3.375 GM VIAL IV PRN (03:00)
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
[2020-04-26] MEDS: HYDROMORPHONE HCL INJ/PF 2 MG/ML AMPULE IV PRN ×4 (04:58→18:44)
[2020-04-26] MEDS: DEXTROSE 5%-LACTATED RINGERS 1,000 ML IV PRN ×2 (04:59→14:57)
[2020-04-26] MEDS ORDERED: LINEZOLID 600 MG/300 ML RTUPB IV ONE (05:58)
[2020-04-26] MEDS ORDERED: PIPERACILLIN/TAZOBACTAM 3.375 GM VIAL IV ONE ×2 (05:58→06:00)
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
[2020-04-26] MEDS: PIPERACILLIN SODIUM/TAZOBACTAM 3.375 GM in NORMAL SALINE 100 ML IV SCH ×3 (06:30→18:13)
[2020-04-26] MEDS: PANTOPRAZOLE SODIUM 40 MG TABLET.DR PO SCH (07:29)
[2020-04-26] MEDS: LINEZOLID 600 MG/300 ML RTUPB IV SCH ×2 (08:29→19:48)
[2020-04-26] MEDS: DOCUSATE SODIUM 100 MG CAPSULE PO SCH ×2 (10:11→18:09)
[2020-04-26] MEDS ORDERED: CEFAZOLIN 1 GM/D5W RTU 50 ML IV ONE (10:13)
[2020-04-26] MEDS ORDERED: MIDAZOLAM 2 MG/2 ML INJ ONE (12:22)
[2020-04-26] MEDS ORDERED: PROPOFOL INJ 200 MG/20 ML VIAL IV ONE (12:22)
[2020-04-26] MEDS ORDERED: ONDANSETRON HCL INJ/PF 4 MG/2 ML SDV ONE (12:22)
[2020-04-26] MEDS ORDERED: FENTANYL CITRATE INJ/PF 100 MCG/2 ML AMPUL ONE (12:22)
[2020-04-26] MEDS ORDERED: GABAPENTIN 300 MG CAPSULE PO PRN (12:39)
[2020-04-26] MEDS ORDERED: TIZANIDINE HCL 4 MG TABLET PO PRN (12:39)
[2020-04-26] MEDS ORDERED: COLCHICINE 0.6 MG TABLET PO PRN (12:39)
[2020-04-26] MEDS ORDERED: DIAZEPAM 5 MG TABLET PO PRN (13:04)
[2020-04-26] MEDS ORDERED: LIDOCAINE 1% INJ-PF (10 MG/ML) 30 ML SDV ONE (13:38)
[2020-04-26] MEDS ORDERED: BUPIVACAINE HCL 0.25 % INJ/PF (2.5 MG/1 ML) 30 ML VIAL ONE (13:38)
[2020-04-26] MEDS ORDERED: FENTANYL CITRATE INJ/PF 100 MCG/2 ML AMPUL IV PRN ×3 (13:42)
[2020-04-26] MEDS ORDERED: DIPHENHYDRAMINE HCL 50 MG/ML VIAL IV PRN (13:42)
[2020-04-26] MEDS ORDERED: MEPERIDINE HCL/PF INJ 25 MG/1 ML DISP.SYRIN IV PRN (13:42)
--- NOTE | 2020-04-26 14:53 | Operative Report ---
Nonrecallable Operative Report DATE OF SURGERY: 04/26/20 PREOPERATIVE DIAGNOSIS: Infected left hip hematoma POSTOPERATIVE DIAGNOSIS: same as above OPERATION: Incision, drainage, and evacuation of left hip hematoma (20 cm diameter) SURGEON: MARYELLEN GERMAIN ANESTHESIA: LMAC TISSUE REMOVED OR ALTERED: Wound culture, hematoma COMPLICATIONS: None apparent ESTIMATED BLOOD LOSS: Minimal PROCEDURE: Drains/implants: 15 [place] round Fernando drain. Procedure in detail: After informed consent was obtained, the patient was bro ught to the operating room and laid in the supine position. The area of the left hip was prepped and draped in a normal sterile fashion. Quarter percent Marcaine was used to infiltrate the skin around the left hip hematoma. An incision was created over the hematoma using a 10 blade scalpel. Dissection was carried down to the hematoma using sharp dissection. Once the hematoma was encountered, wound cultures were taken. The hematoma was evacuated completely. A 15 [place] round Fernando drain was placed into the cavity through a separate stab incision. The drain was sutured to the skin using 2-0 nylon suture. Next, the subcutaneous tissues were closed using 3-0 Vicryl suture in simple interrupted fashion. The overlying skin was closed using skin tiago. A dressing was placed, and the procedure was concluded. All sponge, instrument, needle counts were correct x2. Condition: Stable.
[2020-04-26] MEDS: DIGOXIN 0.125 MG TABLET PO SCH (16:37)
[2020-04-26] MEDS: MULTIVITAMIN TABLET PO SCH (18:12)
[2020-04-26] MEDS: ALLOPURINOL 100 MG TABLET PO SCH (18:12)
[2020-04-26] MEDS: GABAPENTIN 300 MG CAPSULE PO SCH (21:21)
[2020-04-26] MEDS ORDERED: ATORVASTATIN CALCIUM 80 MG TABLET PO SCH (22:00)
[2020-04-26] MEDS ORDERED: AMITRIPTYLINE HCL 50 MG TABLET PO SCH (22:00)
[2020-04-27] MEDS: PIPERACILLIN SODIUM/TAZOBACTAM 3.375 GM in NORMAL SALINE 100 ML IV SCH ×3 (00:53→12:08)
[2020-04-27] MEDS: PANTOPRAZOLE SODIUM 40 MG TABLET.DR PO SCH (05:53)
[2020-04-27] MEDS: LINEZOLID 600 MG/300 ML RTUPB IV SCH ×2 (06:41→07:31)
[2020-04-27 07:35] LABS: HEMATOCRIT 33.4 % (37.9-51.0); MEAN CORPUSCULAR HEMOGLOBIN 29.4 pg (27.0-33.4); MEAN CORPUSCULAR HGB CONC 32.9 g/dL (32.0-36.0); MEAN CORPUSCULAR VOLUME 90 fl (80-97); PLATELET COUNT 426 10^3/uL (150-450); RED BLOOD COUNT 3.73 10^6/uL (4.35-5.55); RED CELL DISTRIBUTION WIDTH 16.2 % (11.5-14.0); WHITE BLOOD COUNT 6.1 10^3/uL (4.0-10.5)
[2020-04-27 07:51] LABS: ANION GAP 6 (5-19); BLOOD UREA NITROGEN 3 mg/dL (7-20); CALCIUM 8.7 mg/dL (8.4-10.2); CARBON DIOXIDE 29 mmol/L (22-30); CHLORIDE 102 mmol/L (98-107); GLUCOSE 97 mg/dL (75-110)
[2020-04-27] MEDS ORDERED: ERGOCALCIFEROL (VITAMIN D2) 50000 UNIT (1.25 MG) CAPSULE PO SCH (10:00)
--- NOTE | 2020-04-27 10:05 | PDOC PROGRESS REPORT ---
Subjective Progress Note for:: 04/27/20 Reason For Visit: INFECTED HEMATOMA LEFT LATERAL HIP AND THIGH Physical Exam Vital Signs: Temp Pulse Resp BP Pulse Ox 97.9 F 83 16 141/87 H 92 04/27/20 03:55 04/27/20 07:00 04/27/20 03:55 04/27/20 03:55 04/27/20 03:55 Intake & Output 04/26/20 04/27/20 04/28/20 06:59 06:59 06:59 Intake Total 1000 3592 Output Total 350 1250 50 Balance 650 2342 -50 Weight 124.9 kg Results Laboratory Results: 04/27/20 06:24 04/27/20 06:24 04/26/20 04/27/20 04/27/20 15:45 06:24 06:24 WBC 6.1 RBC 3.73 L Hgb 11.0 L Hct 33.4 L MCV 90 MCH 29.4 MCHC 32.9 RDW 16.2 H Plt Count 426 Sodium 137.0 Potassium 4.0 Chloride 102 Carbon Dioxide 29 Anion Gap 6 BUN 3 L Creatinine 0.55 Est GFR ( Amer) > 60 Glucose 97 Lactic Acid 1.3 Calcium 8.7 Magnesium 2.0 Impressions: Lower Extremity CT 04/25/20 21:46 IMPRESSION: Nonspecific superficial fluid collection anterior to the left hip musculature, as above. There is some adjacent subcutaneous fat stranding/inflammation and skin thickening. This could reflect hematoma with degrading blood products. Abscess could have a similar appearance. TECHNICAL DOCUMENTATION: Quality ID # 436: Final reports with documentation of one or more dose reduction techniques (e.g., Automated exposure control, adjustment of the mA and/or kV according to patient size, use of iterative reconstruction technique) copyright 2011 [employer]- All Rights Reserved Assessment & Plan - Diagnosis (1) Hematoma of left lower extremity Qualifiers: Encounter type: subsequent encounter Qualified Code(s): S80.12XD - Contusion of left lower leg, subsequent encounter Is this a current diagnosis for this admission?: Yes - Plan Summary Plan Summary: This is a 50-year-old male with an infected left hip hematoma, status post operative evacuation. He is doing well. His dressing is dry. His SANDRA is productive of serosanguineous fluid. Leave SANDRA drain in place. I have given the patient instructions to empty and record the output daily. He is okay to mary anne wer, starting tomorrow. Remove dressing, wash the incision with soap and water, and apply a new dry dressing after showering. Follow-up with [facility] in 7 to 10 days. He is okay for discharge, from a surgical standpoint. Surgery will sign off at this time. Please renotify with any questions or concerns.
[2020-04-27] MEDS: DIGOXIN 0.125 MG TABLET PO SCH (10:40)
[2020-04-27] MEDS: GABAPENTIN 300 MG CAPSULE PO SCH (10:40)
[2020-04-27] MEDS: ALLOPURINOL 100 MG TABLET PO SCH (10:41)
[2020-04-27] MEDS: MULTIVITAMIN TABLET PO SCH (10:41)
[2020-04-27] MEDS: DOCUSATE SODIUM 100 MG CAPSULE PO SCH (10:44)
[2020-04-27 12:00] VITALS: BP 146/85
[2020-04-27] MEDS ORDERED: ACETAMINOPHEN 325 MG TABLET ONE (12:13)
[2020-04-27] MEDS ORDERED: ACETAMINOPHEN 325 MG TABLET PO PRN (12:17)
[2020-04-27] MEDS ORDERED: APIXABAN 5 MG TABLET PO SCH (18:00)
--- NOTE | 2020-04-28 17:51 | PDOC DISCHARGE SUMMARY ---
Impression - Admit/DC Date/PCP Admission Date/Primary Care Provider: 04/26/20 01:[facility] Discharge Date: 04/27/20 - Discharge Diagnosis (1) Hematoma of left lower extremity Is this a current diagnosis for this admission?: Yes (2) Chronic back pain Is this a current diagnosis for this admission?: Yes (3) Obesity Is this a current diagnosis for this admission?: Yes (4) Gouty arthritis Is this a current diagnosis for this admission?: Yes (5) Polyosteoarthritis, unspecified Is this a current diagnosis for this admission?: Yes (6) Spinal cord stimulator status Is this a current diagnosis for this admission?: Yes - Additional Information Resuscitation Status: Full Code Discharge Diet: As Tolerated Discharge Activity: Activity As Tolerated, Balance Activity w/Rest Referrals: MARYELLEN GERMAIN MD [ACTIVE STAFF] - ([id number]---sticker in book) [facility] [Primary Care Provider] - Follow up as needed Prescriptions: Doxycycline Hyclate 100 mg PO BID 7 Days #14 tablet. Ergocalciferol (Vitamin D2) [Drisdol 50,000 unit (1.25MG) Capsule] 50,000 unit P O MILLS@1000 60 Days #8 cap Ondansetron HCl [Zofran 8 mg Tablet] 8 mg PO Q8HP PRN 5 Days #15 tablet PRN Reason: Home Medications: Colchicine [Colchicine 0.6 mg Tablet] 0.6 mg PO DAILYP PRN 03/06/18 Tizanidine HCl [Zanaflex] 4 mg PO Q6HP PRN 03/06/18 Allopurinol [Zyloprim 100 mg Tablet] 100 mg PO BID 04/26/20 Amitriptyline HCl [Elavil 50 mg Tablet] 50 mg PO QHS 04/26/20 Apixaban [Eliquis 5 mg Tablet] 5 mg PO BID 04/26/20 Atorvastatin Calcium [Lipitor 80 mg Tablet] 80 mg PO QHS 04/26/20 Diazepam [Valium] 10 mg PO DAILYP PRN 04/26/20 Digoxin [Lanoxin 0.125 mg Tablet] 0.25 mg PO DAILY 04/26/20 Gabapentin [Neurontin 300 mg Capsule] 300 mg PO DAILYP PRN 04/26/20 Gabapentin [Neurontin 300 mg Capsule] 300 mg PO Q12 04/26/20 Multivitamin [Tab-A-Lucia (Multiple Vitamin) Tablet] 1 tab PO BID 04/26/20 Sildenafil Citrate 100 mg PO PRN PRN 04/26/20 Doxycycline Hyclate 100 mg PO BID 7 Days #14 tablet. 04/27/20 Ergocalciferol (Vitamin D2) [Drisdol 50,000 unit (1.25MG) Capsule] 50,000 unit PO MILLS@1000 60 Days #8 cap 04/27/20 Ondansetron HCl [Zofran 8 mg Tablet] 8 mg PO Q8HP PRN 5 Days #15 tablet 04/27/20 History of Present Illiness History of Present Illness: NADYA CULVER is a 50 year old male who presents the emergency room with a 4-day history of left thigh pain. He admits having a hematoma of his left thigh present since he was discharged from [facility] on 04/18/2020, over the last 4 days the area has gradually become more swollen, red and tender having become excruciatingly painful prior to coming to the emergency room. The pain is a severe throbbing pressure without radiation and worsened by weightbearing or pressure over the area. He denies associated or accompanying signs and symptoms. He denies prior similar episodes. He has not identified any additional aggravating or ameliorating factors for his left thigh pain. In the emergency room he was found to have a large hematoma involving the lateral left thigh and hip area with increased warmth to touch and marked erythema and tenderness consistent with a infected hematoma. Dr. Cummings was called by the emergency room physician who was instructed to admit the patient to the hospitalist service and he (Dr. Cummings) would see the patient in the morning. The patient is to remain n.p.o. per Dr. Cummings's instruction. Hospital Course Hospital Course: Patient was admitted to medical floor, on supportive and symptomatic care. Surgery was consulted. Patient was placed n.p.o. Started on IV fluids and broad-spectrum IV antibiotics. His Eliquis was held. Patient was taken to the OR had an I&D, and a SANDRA drain was placed. Patient was discharged home as per surgery recommendation and was asked to do wound care at home and follow-up with surgical clinic 7 to 10 days. Left hip hematoma fluid was sent for culture, which was negative at the time of discharge, patient was discharged on clindamycin for another 7 days prophylactically. At the time of dictation blood and wound culture are negative x48 hours. Physical Exam Vital Signs: Temp Pulse Resp BP Pulse Ox 98.0 F 90 18 146/85 H 96 04/27/20 13:30 04/27/20 13:30 04/27/20 13:30 04/27/20 11:27 04/27/20 13:30 Intake & Output 04/27/20 04/28/20 04/29/20 06:59 06:59 06:59 Intake Total 3592 1010 Output Total 1250 1805 Balance 2342 -795 General appearance: PRESENT: no acute distress, obese, well-developed, well- nourished Head exam: PRESENT: atraumatic, normocephalic Respiratory exam: PRESENT: clear to auscultation soniya. ABSENT: rales, rhonchi, wheezes Cardiovascular exam: PRESENT: RRR. ABSENT: diastolic murmur, rubs, systolic murmur GI/Abdominal exam: PRESENT: normal bowel sounds, soft. ABSENT: distended, guarding, mass, organolmegaly, rebound, tenderness Musculoskeletal exam: PRESENT: other - Left hip surgical wound is clean, no erythema, no discharge, drain in place with serosanguineous fluid, no sign of infection. Neurological exam: PRESENT: alert, awake, oriented to person, oriented to place, oriented to time, oriented to situation, CN II-XII grossly intact, motor sensory deficit - Bilateral lower extremity paraparesis. Chronic. Results Laboratory Results: WBC 6.1 10^3/uL (4.0-10.5) 04/27/20 06:24 RBC 3.73 10^6/uL (4.35-5.55) L 04/27/20 06:24 Hgb 11.0 g/dL (13.5-17.0) L 04/27/20 06:24 Hct 33.4 % (37.9-51.0) L 04/27/20 06:24 MCV 90 fl (80-97) 04/27/20 06:24 MCH 29.4 pg (27.0-33.4) 04/27/20 06:24 MCHC 32.9 g/dL (32.0-36.0) 04/27/20 06:24 RDW 16.2 % (11.5-14.0) H 04/27/20 06:24 Plt Count 426 10^3/uL (150-450) 04/27/20 06:24 Lymph % (Auto) 13.9 % (13-45) 04/25/20 21:35 Bradley % (Auto) 8.8 % (3-13) 04/25/20 21:35 Eos % (Auto) 1.4 % (0-6) 04/25/20 21:35 Baso % (Auto) 0.8 % (0-2) 04/25/20 21:35 Absolute Neuts (auto) 7.3 10^3/uL (1.7-8.2) 04/25/20 21:35 Absolute Lymphs (auto) 1.3 10^3/uL (0.5-4.7) 04/25/20 21:35 Absolute Monos (auto) 0.9 10^3/uL (0.1-1.4) 04/25/20 21:35 Absolute Eos (auto) 0.1 10^3/uL (0.0-0.6) 04/25/20 21:35 Absolute Basos (auto) 0.1 10^3/uL (0.0-0.2) 04/25/20 21:35 Seg Neutrophils % 75.1 % (42-78) 04/25/20 21:35 ESR 96 mm/hr (0-20) H 04/25/20 21:35 Sodium 137.0 mmol/L (137-145) 04/27/20 06:24 Potassium 4.0 mmol/L (3.6-5.0) 04/27/20 06:24 Chloride 102 mmol/L (98-107) 04/27/20 06:24 Carbon Dioxide 29 mmol/L (22-30) 04/27/20 06:24 Anion Gap 6 (5-19) 04/27/20 06:24 BUN 3 mg/dL (7-20) L 04/27/20 06:24 Creatinine 0.55 mg/dL (0.52-1.25) 04/27/20 06:24 Est GFR ( Amer) > 60 (>60) 04/27/20 06:24 Est GFR (MDRD) Non-Af > 60 (>60) 04/27/20 06:24 Glucose 97 mg/dL (75-110) 04/27/20 06:24 Lactic Acid 1.3 mmol/L (0.7-2.1) 04/26/20 15:45 Calcium 8.7 mg/dL (8.4-10.2) 04/27/20 06:24 Magnesium 2.0 mg/dL (1.6-2.3) 04/27/20 06:24 Total Bilirubin 0.6 mg/dL (0.2-1.3) 04/25/20 21:35 Direct Bilirubin 0.2 mg/dL (0.0-0.4) 04/25/20 21:35 Neonat Total Bilirubin Not Reportable 04/25/20 21:35 Neonat Direct Bilirubin Not Reportable 04/25/20 21:35 Neonat Indirect Bili Not Reportable 04/25/20 21:35 AST 24 U/L (17-59) 04/25/20 21:35 ALT 35 U/L (<50) 04/25/20 21:35 Alkaline Phosphatase 150 U/L (38-126) H 04/25/20 21:35 C-Reactive Protein 77.0 mg/L (<10.0) H 04/25/20 21:35 Total Protein 6.6 g/dL (6.3-8.2) 04/25/20 21:35 Albumin 3.6 g/dL (3.5-5.0) 04/25/20 21:35 SARS-CoV-2 (PCR) NEGATIVE (NEGATIVE) 04/26/20 06:44 Impressions: Lower Extremity CT 04/25/20 21:46 IMPRESSION: Nonspecific superficial fluid collection anterior to the left hip musculature, as above. There is some adjacent subcutaneous fat stranding/inflammation and skin thickening. This could reflect hematoma with degrading blood products. Abscess could have a similar appearance. TECHNICAL DOCUMENTATION: Quality ID # 436: Final reports with documentation of one or more dose reduction techniques (e.g., Automated exposure control, adjustment of the mA and/or kV according to patient size, use of iterative reconstruction technique) copyright 2011 [employer]- All Rights Reserved Plan Time Spent: Greater than 30 Minutes Stroke Is this a Stroke Patient?: No Acute Heart Failure - Is this a Heart Failure Patient?: No
== END 2020-04-27 16:01 | disposition home or self-care (01) | DRG 605 ==
LOC: ER 20:37 → EH 04-26 01:47 → 5 04-26 02:55
PROVIDERS: ADMIT Emergency Medicine; ATTEND Emergency Medicine
PROC: 0J9M00Z Drainage of Left Upper Leg Subcutaneous Tissue and Fascia with Drainage Device, Open Approach (ICD-10-PCS; principal; 2020-04-26 11:00)
DX: S70.12XA Contusion of left thigh, initial encounter (principal); M79.652 Pain in left thigh; M10.9 Gout, unspecified; G89.29 Other chronic pain; M89.49 Other hypertrophic osteoarthropathy, multiple sites; E66.9 Obesity, unspecified; V49.9XXA Car occupant (driver) (passenger) injured in unspecified traffic accident, initial encounter; Y93.89 Activity, other specified; Y92.89 Other specified places as the place of occurrence of the external cause; Z20.828 Contact with and (suspected) exposure to other viral communicable diseases; Z96.641 Presence of right artificial hip joint; Z96.651 Presence of right artificial knee joint; Z79.01 Long term (current) use of anticoagulants; Z98.84 Bariatric surgery status; Z68.33 Body mass index [BMI] 33.0-33.9, adult; Z96.82 Presence of neurostimulator
CPT/HCPCS: 00400; 36415; 80048; 80053; 83605; 83735; 85025; 85027; 85652; 86140; 87040; 87070; 87075; 87205; 87635; 96361; 96365; 96375; 99140; 99285; C9803; J1170; J2020; J2250; J2405; J2543; J2704; J3010; J3490; J7030; J7050; J7121